=== PATIENT | female | born 1965 | race Caucasian/White ===

== ENCOUNTER 2021-11-20 17:14 | Emergency (ER) | payer BC ==
[2021-11-20 17:53] LABS: CHLORIDE,CL 101 mmol/L (98-107); SODIUM,NA 138 mmol/L (136-145)
== END 2021-11-20 21:15 | disposition home or self-care (01) ==
LOC: VM.ED 17:14
DX: R07.89 Other chest pain (principal); E78.00 Pure hypercholesterolemia, unspecified; I10 Essential (primary) hypertension; I25.2 Old myocardial infarction; Z88.8 Allergy status to other drugs, medicaments and biological substances; Z72.0 Tobacco use
CPT/HCPCS: 36415; 71046; 80053; 82550; 83615; 84484; 85025; 86140; 93005; 93010; 99285; 99285-25